=== PATIENT | female | born 1985 | race American Indian/Alaskan Native ===

== ENCOUNTER 2017-01-05 01:56 | Emergency (ER) | payer BC, MEDICAID, SELFPAY ==
[~2017-01-05] VITALS: Ht 157.5 cm; Wt 73.2 kg
[2017-01-05] MEDS ORDERED: DIPH,PERTUSS(ACELL),TET VAC/PF 0.5 ML IM-VACC ONE ×2 (02:14→03:30)
[2017-01-05] MEDS ORDERED: LIDOCAINE 1%, 20ML ONE (02:45)
[2017-01-05] MEDS ORDERED: BACITRACIN ZINC OINT 500U/GM, 0.9 GM ONE (02:49)
[2017-01-05 03:24] VITALS: BP 111/78
== END 2017-01-05 03:26 | disposition home or self-care (01) ==
LOC: ED 03:20
DX: S01.01XA Laceration without foreign body of scalp, initial encounter (principal); S80.01XA Contusion of right knee, initial encounter; Y04.2XXA Assault by strike against or bumped into by another person, initial encounter
CPT/HCPCS: 12001; 70450; 90471; 90715

== ENCOUNTER 2018-12-18 15:50 | Emergency (ER) | payer BC ==
[~2018-12-18] VITALS: Ht 157.5 cm; Wt 68.6 kg
[2018-12-18 16:03] VITALS: BP 135/87
--- NOTE | 2018-12-18 16:48 | NUR ---
pt to xray
== END 2018-12-18 17:43 | disposition home or self-care (01) ==
LOC: ED 17:37
DX: G89.11 Acute pain due to trauma (principal); M79.671 Pain in right foot; X50.1XXA Overexertion from prolonged static or awkward postures, initial encounter; Y93.01 Activity, walking, marching and hiking; Y92.410 Unspecified street and highway as the place of occurrence of the external cause; Y99.8 Other external cause status
CPT/HCPCS: 99283

== ENCOUNTER 2019-09-14 09:09 | Emergency (ER) | payer BC ==
[~2019-09-14] VITALS: Ht 157.5 cm; Wt 73.5 kg
[2019-09-14 09:13] VITALS: BP 164/107
--- NOTE | 2019-09-14 09:21 | NUR ---
[id number] is in triage for evaluation.
== END 2019-09-14 09:36 | disposition home or self-care (01) ==
LOC: ED 09:31
DX: J30.2 Other seasonal allergic rhinitis (principal)
CPT/HCPCS: 99282